=== PATIENT | female | born 1950 | race Caucasian/White ===

== ENCOUNTER → 2016-09-16 | Outpatient (CLI) | payer MEDICARE, OTHER | END | disposition disaster alternative care site (69) | LOC: GRAD 15:20 | DX: Z91.81 History of falling (principal); S02.2XXA Fracture of nasal bones, initial encounter for closed fracture; S09.92XA Unspecified injury of nose, initial encounter; H05.221 Edema of right orbit; W19.XXXA Unspecified fall, initial encounter ==